=== PATIENT | female | born 1950 | race Caucasian/White ===

== ENCOUNTER 2022-01-17 05:35 | Day surgery (SDC) | payer MEDICARE ==
[~2022-01-17] VITALS: Ht 158 cm; Wt 71.0 kg
[~2022-01-17 05:35] MED LIST: ACETAMINOPHEN500 M1 PO; ASPIRIN81 MG PO; B COMPLEX1 EACH PO; CALCIUM + VITA1 EACH PO; CENTRUM ADULTS1 EACH PO; CIPRO500 M1 PO; MOBIC7.5 MG PO; PRESERVISION A1 EACH PO; SV FLAXSEED OI1 EACH PO; TISSUE REJUVENATOR PO; VITAMIN D35000 UNIT PO; XARELTO10 MG PO; ZINC50 M1 PO; ZOCOR20 MG PO
[2022-01-18 07:19] LABS: BASOPHIL 0.3 % (0-2); EOSINOPHIL 0.9 % (0-7); HCT 37.4 % (37.0-47.0); LYMPHOCYTE 25.9 % (15-48); MCH 30.2 pg (25.0-31.0); MCHC 32.1 g/dL (32.0-36.0); MONOCYTE 7.9 % (0-12); NEUTROPHIL 64.7 % (41-80); NRBC 0; PLT 189 K/uL (150-400); RBC 3.98 M/uL (4.20-5.40); WBC 12.8 K/uL (4.0-10.5)
[2022-01-18 07:50] LABS: BUN/CREAT RATIO (CALC) 11.5 RATIO; CREATININE 0.61 mg/dL (0.51-0.95)
[2022-01-18] MEDS ORDERED: FEOSOL325 MG PO (08:38)
[2022-01-18] MEDS ORDERED: ONDANSETRON HCL4 MG PO (08:38)
[2022-01-18] MEDS ORDERED: OXYCODONE-ACET1 EAC1 PO (08:38)
[2022-01-18] MEDS ORDERED: XARELTO10 MG PO (08:38)
== END 2022-01-18 12:58 | disposition home or self-care (01) ==
LOC: FAS 05:35 → FMS 09:36 → FAS 01-18 12:58
PROVIDERS: Legal Medicine
DX: M17.12 Unilateral primary osteoarthritis, left knee (principal); G89.18 Other acute postprocedural pain; E78.5 Hyperlipidemia, unspecified; Z79.82 Long term (current) use of aspirin; Z79.899 Other long term (current) drug therapy
CPT/HCPCS: 36415; 73560; 80048; 85025; 86850; 86900; 86901; 94010; 97110; 97162; 97166; 97530-GP; C1713; C1776; J0171; J0697; J1885; J2250; J2270; J2370; J2405; J2704; J2795; J3010; J7120